=== PATIENT | male | born 1970 | race Caucasian/White ===

== ENCOUNTER 2020-10-24 11:58 | Emergency (ER) | payer OTHER, MEDICARE ==
[2020-10-24] MEDS ORDERED: CLEAR EYES COMP15 ML OS (14:24)
== END 2020-10-24 14:37 | disposition home or self-care (01) ==
LOC: ER1 11:58
DX: H10.12 Acute atopic conjunctivitis, left eye (principal); J44.9 Chronic obstructive pulmonary disease, unspecified
CPT/HCPCS: 99283